=== PATIENT | female | born 1965 | race American Indian/Alaskan Native ===

== ENCOUNTER 2017-05-26 15:02 | Emergency (ER) | payer OTHER ==
--- NOTE | 2017-05-26 18:21 | Emergency Department Report ---
- General Chief Complaint: Upper Respiratory Infection Stated Complaint: FLU LIKE SYMPTOMS Time Seen by Provider: 05/26/17 18:02 Source: patient Mode of arrival: Ambulatory Limitations: No Limitations - History of Present Illness Initial Comments: This is a 52 y.o. F, presenting with muscle aches, fever, productive cough, and sore throat x 4 days. She was using dayquil, nyquil, and ibuprofen for symptom relief without improvement. Denies being in contact with other sick people. States she was working in a cold environment and thought she caught a cold from there. Denies SOB, nausea, vomiting, abdominal pain, weakness, change in sleep pattern. MD Complaint: fever, cough, sore throat, rhinorrhea, nasal congestion -: Gradual Severity: moderate Severity scale (0 -10): 9 Quality: aching Consistency: intermittent Improves With: NSAID, OTC cold medicine Worsens With: nothing, deep breaths Context: other (environmental, cold working condition) Associated Symptoms: fever, chills, myalgias, headache, rhinorrhea, nasal congestion, sore throat, cough. denies: diaphoresis, stiff neck, chest pain, shortness of breath, abdominal pain, nausea, vomiting, diarrhea, dysuria, rash, confusion, right sweats, weight loss, epistaxis, hoarseness, ear pain Treatments Prior to Arrival: Ibuprofen, "cold medicine" - Related Data Previous Rx's Medication Instructions Recorded Last Taken Type Amoxicillin/Potassium Clav 1 each PO BID 5 Days #10 tablet 05/26/17 Unknown Rx [Augmentin 875-125 Tablet] Allergies Allergy/AdvReac Type Severity Reaction Status Date / Time No Known Allergies Allergy Unverified 05/26/17 15:30 ED Review of Systems ROS: Stated complaint: FLU LIKE SYMPTOMS Other details as noted in HPI Constitutional: chills, fever, malaise Eyes: as per HPI ENT: as per HPI, throat pain, congestion. denies: dental pain, hearing loss, epistaxis Respiratory: cough. denies: orthopnea, shortness of breath, SOB with exertion, SOB at rest, wheezing Cardiovascular: as per HPI. denies: chest pain, palpitations, dyspnea on exertion, orthopnea, edema, syncope, paroxysmal nocturnal dyspnea Neurological: as per HPI, headache. denies: weakness, numbness, paresthesias, confusion, abnormal gait, vertigo Psychiatric: as per HPI. denies: anxiety, depression, auditory hallucinations, visual hallucinations, homicidal thoughts, suicidal thoughts ED Past Medical Hx - Past Medical History Previous Medical History?: No - Surgical History Past Surgical History?: No - Social History Smoking Status: Never Smoker Substance Use Type: None - Medications Home Medications: Home Medications Medication Instructions Recorded Confirmed Last Taken Type Amoxicillin/Potassium Clav 1 each PO BID 5 Days #10 tablet 05/26/17 Unknown Rx [Augmentin 875-125 Tablet] ED Physical Exam - General Limitations: No Limitations General appearance: alert - Head Head exam: Present: normal inspection - Eye Eye exam: Present: normal appearance, PERRL. Absent: EOMI, scleral icterus, conjunctival injection, nystagmus, periorbital swelling, periorbital tenderness Pupils: Present: normal accommodation - ENT ENT exam: Present: normal external ear exam, other (nasal turbinates eyrthematous and swollen, maxillary sinus tender to percussion, uvula midline with mild erythema) - Neck Neck exam: Present: normal inspection, full ROM - Respiratory Respiratory exam: Present: normal lung sounds bilaterally. Absent: respiratory distress, wheezes, rales, rhonchi, stridor - Cardiovascular Cardiovascular Exam: Present: regular rate, normal rhythm. Absent: bradycardia , tachycardia, normal heart sounds, systolic murmur, diastolic murmur, rubs, clicks - GI/Abdominal GI/Abdominal exam: Present: soft, normal bowel sounds. Absent: distended, tenderness, guarding, rebound, rigid, diminished bowel sounds, hyperactive bowel sounds, hypoactive bowel sounds, organomegaly, mass, bruit, pulsatile mass , hernia - Psychiatric Psychiatric exam: Present: normal affect, normal mood. Absent: depressed, agitated, anxious, flat affect, manic, homicidal ideation, suicidal ideation ED Course Vital Signs 05/26/17 05/26/17 15:30 19:59 Temperature 100.4 F H Pulse Rate 109 H 102 H Respiratory 18 Rate Blood Pressure 171/75 157/75 O2 Sat by Pulse 98 98 Oximetry Critical care attestation.: If time is entered above; I have spent that time in minutes in the direct care of this critically ill patient, excluding procedure time. ED Disposition Clinical Impression: URI (upper respiratory infection) Qualifiers: URI type: acute nasopharyngitis (common cold) Qualified Code(s): J00 - Acute nasopharyngitis [common cold] Sinusitis, acute, maxillary Qualifiers: Recurrence: non-recurrent Qualified Code(s): J01.00 - Acute maxillary sinusitis , unspecified Disposition: TO HOME OR SELFCARE Is pt being admited?: No Does the pt Need Aspirin: No Condition: Stable Instructions: Acetaminophen/Guaifenesin/Phenylephrine (By mouth), Sinusitis (ED ), Cold Symptoms (ED) Additional Instructions: Continue taking tylenol for fever control. Increase fluids. Prescriptions: Amoxicillin/Potassium Clav [Augmentin 875-125 Tablet] 1 each PO BID 5 Days #10 tablet Referrals: PRIMARY CARE, [Primary Care Provider] - 3-5 Days [facility] [Outside] - 3-5 Days Forms: Work/School Release Form(ED) Time of Disposition: 20:16 Print Language: MONTSERRAT[place]
[2017-05-26] MEDS ORDERED: XYLOCAINE 1% MPF 5 mL INFILTRATI ONE (19:25)
[2017-05-26] MEDS ORDERED: ROCEPHIN IM ONE (19:26)
[2017-05-26 22:56] VITALS: BP 158/93
== END 2017-05-26 20:40 | disposition home or self-care (01) ==
LOC: ED 15:02
DX: J01.00 Acute maxillary sinusitis, unspecified (principal)
CPT/HCPCS: 87400; 96372; 99282; J0696